=== PATIENT | male | born 1985 ===

== ENCOUNTER 2021-03-21 17:31 | Emergency (ER) | payer OTHER ==
--- NOTE | 2021-03-21 19:47 | Emergency Department Report ---
ED General Adult HPI - General Chief complaint: Back Pain/Injury Stated complaint: BACK PAIN Time Seen by Provider: 03/21/21 19:33 Source: patient Mode of arrival: Ambulatory Limitations: No Limitations - History of Present Illness Initial comments: 35-year-old male patient presents with complaints of continued back pain x2 months. Patient states his pain began after he had a work injury. Patient states he has been following with a chiropractor for the past 2 months and having physical therapy performed by the chiropractor. He states he has not been in a couple weeks and his pain is worsening. Patient states he has been taking OTC pain medications without improvement in his symptoms. He denies his pain suddenly worsening, numbness/tingling/weakness in his limbs, loss of bladder/bowel control, or difficulty with ambulation. Patient states he did have an MRI performed that showed he had a protruding disc in his low back. He rates his pain as a 8/10 in severity and states it worsens at night when he is trying to sleep. Patient denies any past medical history or known drug allergies - Related Data Previous Rx's Medication Instructions Recorded Last Taken Type Naproxen [Naprosyn] 500 mg PO BID PRN #20 tab 03/21/21 Unknown Rx methocarbamoL [Methocarbamol] 750 - 1,500 mg PO TID PRN #30 tab 03/21/21 Unknown Rx Allergies Allergy/AdvReac Type Severity Reaction Status Date / Time No Known Allergies Allergy Verified 03/21/21 18:27 ED Review of Systems ROS: Stated complaint: BACK PAIN Other details as noted in HPI Constitutional: denies: chills, fever, malaise, weakness Respiratory: denies: cough, shortness of breath Cardiovascular: denies: chest pain Gastrointestinal: denies: abdominal pain, nausea, vomiting Musculoskeletal: back pain. denies: arthralgia Skin: denies: rash, change in color Neurological: denies: numbness, paresthesias, abnormal gait ED Past Medical Hx - Past Medical History Previous Medical History?: No - Medications Home Medications: Home Medications Medication Instructions Recorded Confirmed Last Taken Type Naproxen [Naprosyn] 500 mg PO BID PRN #20 tab 03/21/21 Unknown Rx methocarbamoL [Methocarbamol] 750 - 1,500 mg PO TID PRN #30 tab 03/21/21 Unknown Rx ED Physical Exam - General Limitations: No Limitations General appearance: alert, in no apparent distress - Head Head exam: Present: atraumatic, normocephalic - Eye Eye exam: Present: normal appearance. Absent: scleral icterus - Respiratory Respiratory exam: Absent: respiratory distress - Cardiovascular Cardiovascular Exam: Present: regular rate - Extremities Exam Extremities exam: Present: full ROM - Back Exam Back exam: Present: paraspinal tenderness (Lower lumbar), vertebral tenderness (mild Lower lumbar; no obvious deformities or step-offs noted) - Expanded Back Exam Expanded Back exam: Absent: saddle anesthesia - Neurological Exam Neurological exam: Present: alert, oriented X3, normal gait - Expanded Neurological Exam Expanded Sensory exam: Lower Extremity Light Touch: Normal Motor strength exam: RLE: 4, LLE: 4 - Psychiatric Psychiatric exam: Present: normal affect, normal mood - Skin Skin exam: Present: warm, dry, intact, normal color. Absent: rash ED Course Vital Signs 03/21/21 03/21/21 03/21/21 18:23 20:37 20:42 Temperature 99.2 F Pulse Rate 101 H 104 H Respiratory 16 14 16 Rate Blood Pressure 166/103 Blood Pressure 172/102 [Right] O2 Sat by Pulse 87 95 Oximetry 03/21/21 21:17 Temperature Pulse Rate 103 H Respiratory 16 Rate Blood Pressure Blood Pressure 172/102 [Right] O2 Sat by Pulse 95 Oximetry ED Medical Decision Making - Medical Decision Making 35-year-old male patient presents with complaints of continued back pain x2 months. Patient states his pain began after he had a work injury. Patient states he has been following with a chiropractor for the past 2 months and having physical therapy performed by the chiropractor. He states he has not been in a couple weeks and his pain is worsening. Patient states he has been taking OTC pain medications without improvement in his symptoms. He denies his pain suddenly worsening, numbness/tingling/weakness in his limbs, loss of bladder/bowel control, or difficulty with ambulation. Patient states he did have an MRI performed that showed he had a protruding disc in his low back. He rates his pain as a 8/10 in severity and states it worsens at night when he is trying to sleep. Patient denies any past medical history or known drug allergies No acute abnormalities noted on exam or acute changes per patient. We will try a trial of muscle relaxers and NSAIDs. Recommend patient follows up with the client application support specialist for further evaluation and treatment, referral provided. Also discussed importance of follow-up for blood pressure. Heart rate repeated at 96 bpm. He is otherwise well-appearing, his vitals are within normal limits, he is stable for discharge home. Discussed in detail signs and symptoms that should prompt immediate return to the emergency department with patient who verbalizes understanding Critical care attestation.: If time is entered above; I have spent that time in minutes in the direct care of this critically ill patient, excluding procedure time. ED Disposition Clinical Impression: Low back pain Disposition: HOME / SELF CARE / HOMELESS Is pt being admited?: No Condition: Stable Instructions: Radicular Pain, Herniated Disk, [id number], Back Exercises, [id number] Prescriptions: methocarbamoL [Methocarbamol] 750 - 1,500 mg PO TID PRN #30 tab PRN Reason: muscle spasm/tightness Naproxen [Naprosyn] 500 mg PO BID PRN #20 tab PRN Reason: pain Referrals: [facility] [Provider Group] - 3-5 Days [facility] [Provider Group] - 3-5 Days Forms: Work/School Release Form(ED) Print Language: ICELANDIC
[2021-03-21] MEDS ORDERED: dexAMETHasone 4 MG/ML VIAL IM STA (19:54)
[2021-03-21] MEDS ORDERED: KETOROLAC 60 MG/2 ML INJ IM ONE (19:54)
[2021-03-21 20:43] VITALS: BP 172/102
== END 2021-03-21 21:18 | disposition home or self-care (01) ==
LOC: ED 17:31
DX: M54.50 Low back pain, unspecified (principal)
CPT/HCPCS: 96372; 99282; J1100; J1885